=== PATIENT | male | born 1990 | race Caucasian/White ===

== ENCOUNTER → 2017-12-14 13:25 | Outpatient (CLI) | payer OTHER, MEDICAID, SELFPAY ==
--- NOTE | 2017-12-14 13:32 | DI.RAD.S_ITS ---
PROCEDURE: XR HAND RT MIN 3V INDICATIONS: hand pain TECHNIQUE: 3 views of the hand(s) acquired. COMPARISON: None. FINDINGS: Bones: There is a fracture involving the fifth metacarpal neck with mild volar angulation. Carpal bones are normally aligned. No suspicious bony lesions. There is a small osseous density at the ulnar aspect of the third distal interphalangeal joint. Soft tissues: No suspicious soft tissue calcifications. IMPRESSION: 1. Fracture of the fifth metacarpal neck with mild volar angulation. 2. Small ossicle at the ulnar aspect of the third distal interphalangeal joint may be a small avulsion fracture of uncertain chronicity. Dictated by: Blayne Copeland M.D. on 12/14/2017 at 22:11 Transcribed by: MAIKEL on 12/14/2017 at 22:14 Approved by: Blayne Copeland M.D. on 12/15/2017 at 7:39
== END ==
PROVIDERS: Visit Provider Physician Assistant
DX: S62.336A Displaced fracture of neck of fifth metacarpal bone, right hand, initial encounter for closed fracture (principal); M79.641 Pain in right hand
CPT/HCPCS: 73130

== ENCOUNTER 2018-03-04 08:47 | Emergency (ER) | payer SELFPAY ==
[2018-03-04 09:03] VITALS: BP 149/68; PULSE 78; RESP 20; TEMP 36.9; O2SAT 98; BMI 45.6
--- NOTE | 2018-03-04 09:07 | ED.MALEGU ---
HPI - Male Genitourinary General Chief complaint: Urogenital-Male Stated complaint: LOWER BACK PAIN ON RT SIDE Time Seen by Provider: 03/04/18 09:06 Source: patient Mode of arrival: ambulatory Limitations: no limitations History of Present Illness HPI Narrative: Patient is a 27-year-old male who presents with right-sided flank pain. It started about 5:00 a.m. morning as seems to be pretty constant goes around to his abdomen not down to his groin. He has not noted any blood in his urine as feel some what nauseated he took 1200 ibuprofen this morning all at without any all Related Data Previous Rx's Medication Instructions Recorded hydrocodone-acetaminophen 1 tab PO Q6H PRN #10 tab 03/04/18 ondansetron 4 mg PO Q6H #10 tab 03/04/18 ondansetron [Zofran ODT] 4 mg PO Q6-8H PRN #10 tab 03/04/18 Allergies Allergy/AdvReac Type Severity Reaction Status Date / Time No Known Drug Allergies Allergy Verified 12/14/17 12:34 Review of Systems Review of Systems GENERAL: Denies chills, fatigue, malaise, fever, sweats, travel HEENT: Denies sinus pain, ear pain, sore throat, difficulty swallowing, neck pain RESPIRATORY: Denies dyspnea, cough, wheezing, hemoptysis, sputum. CARDIOVASCULAR: Denies chest pain, palpitations, orthopnea, edema GASTROINTESTINAL: Denies nausea, vomiting, abdominal pain, diarrhea, constipation, melena. : See HPI MUSCULOSKELETAL: Denies weakness, joint pain, or bony pain SKIN: No rash, no erythema, no pruritus NEUROLOGIC: Denies weakness, dizziness, headache, numbness, change in speech, confusion PSYCHIATRIC: No concerning psychosocial issues. 12 point review of systems is negative except for those stated above and HPI PFSH Medical History Healthy male adult (Acute) Social History Smoking Status: Never smoker Exam Initial Vital Signs Initial Vital Signs: Vital Signs Temperature 98.5 F 03/04/18 09:03 Pulse Rate 78 03/04/18 09:03 Respiratory Rate 20 03/04/18 09:03 Blood Pressure 149/68 H 03/04/18 09:03 Pulse Oximetry 98 03/04/18 09:03 GENERAL: Well-appearing, well-nourished and in no acute distress. HEENT: Head atraumatic,EOMI, pupils reactive, face symmetric CARDIOVASCULAR: Regular rate and rhythm without murmurs, rubs or gallops. RESPIRATORY: Breath sounds equal bilaterally, no wheezes rales or rhonchi. ABDOMEN: Soft, minimal tenderness no lower abdominal tenderness no guarding or rebound : Mild right CVA tenderness EXTREMITIES: Normal range of motion, no clubbing or edema. Neurovascularly intact NEUROLOGICAL: Alert and oriented x4.Normal gait and speech. Cranial nerves II through XII grossly intact. SKIN: Warm, dry, no laceration, no petechiae, no rashes or lesions. Course Orders Ordered: ED Orders 03/04/18 09:37 CT kidney ureter bladder (KUB) Stat 03/04/18 09:55 Urinalysis and Microscopic Stat 03/04/18 10:00 Basic Metabolic Panel Stat Complete Blood Count AUTO DIFF Stat Vital Signs - 8 hr 03/04/18 09:03 03/04/18 09:30 03/04/18 10:00 Temperature 98.5 F Pulse Rate 78 81 83 Respiratory Rate 20 30 H 30 H Blood Pressure 149/68 H Blood Pressure [Left Arm] 94/43 L 100/46 L Pulse Oximetry 98 93 94 03/04/18 10:35 03/04/18 11:06 Temperature Pulse Rate 80 72 Respiratory Rate 31 H 20 Blood Pressure 138/76 Blood Pressure [Left Arm] 93/45 L Pulse Oximetry 100 MDM - Male Genitourinary Lab Data Attestation: I reviewed the patient's lab results. Result diagrams: 03/04/18 10:00 03/04/18 10:00 Lab Results 03/04/18 03/04/18 03/04/18 Range/Units 09:55 10:00 10:00 WBC 15.0 H (4.5-11.0) X10^3/uL RBC 5.66 (4.5-5.9) X10^6/uL Hgb 16.7 (13.5-17.5) g/dL Hct 49.2 (41-53) % MCV 86.9 (80-100) fL MCH 29.5 (26-34) PG MCHC 34.0 (30-36) % RDW 13.8 (11.6-14.8) % Plt Count 333 (150-400) X10^3/uL Neut % (Auto) 82.9 H (50-75) % Lymph % (Auto) 10.7 L (25-40) % [place] % (Auto) 5.8 (3-14) % Eos % (Auto) 0.2 L (2-4) % Baso % (Auto) 0.4 (0-2) % Neut # (Auto) 93675 H (2278-5731) /uL Sodium 146 H (137-145) mmol/L Potassium 4.8 (3.4-5.1) mmol/L Chloride 104 (98-107) mmol/L Carbon Dioxide 30 (22-32) mmol/L BUN 12 (9-20) mg/dL Creatinine 1.20 (0.66-1.25) mg/dL Estimated GFR > 60.0 (>60) mL/min BUN/Creatinine Ratio 10.0 (6-22) Glucose 104 H (70-100) mg/dL Calcium 9.6 (8.4-10.2) mg/dL Urine Color Yellow Urine Appearance Clear Urine pH 6.5 (4.5-8.0) Ur Specific [place] 1.025 (1.000-1.035) Urine Protein 2+ H (Negative) Urine Glucose (UA) Negative (Normal) g/dL Urine Ketones Negative (NEGATIVE) Urine Occult Blood 3+ H (Negative) Urine Nitrate Negative (Negative) Urine Bilirubin Negative (NEGATIVE) Urine Urobilinogen 1.0 (0.2) E.U./dL Ur Leukocyte Esterase Trace H (NEGATIVE) Urine RBC 5-10/hpf H (0-5/HPF) Urine WBC 0-1/hpf (0-5/HPF) Urine Bacteria None seen (None) Ur Culture Indicated? Cult not indicated Imaging Data CT scan - abdomen: Radiologist's impression: PROCEDURE: CT KIDNEY URETER BLADDER (KUB) INDICATIONS: right flank pain TECHNIQUE: Noncontrast 5 mm thick sections acquired from the diaphragms to the symphysis. 5 mm thick coronal and sagittal reformats were then performed. For radiation dose reduction, the following was used: automated exposure control, adjustment of mA and/or kV according to patient size. COMPARISON: None. FINDINGS: Image quality: Excellent. Lung bases: Lung bases are clear. Heart size is normal. Urinary system: Left kidney and ureter are unremarkable. There is a punctate calcification at the right ureterovesicular junction with mild to moderate right hydronephrosis and hydroureter. Bladder is collapsed limiting evaluation; no calcified bladder stones. Other solid organs: Liver is normal in size. Gallbladder is unremarkable. Pancreas is normal in contours. Spleen is normal in size. No adrenal nodules. Peritoneum and bowel: Unenhanced bowel loops demonstrate normal wall thickness and caliber. No free fluid or air. Nodes and vessels: No retroperitoneal or mesenteric adenopathy by size criteria. Aorta and inferior vena cava are normal in caliber. Abdominal wall: No ventral hernias. Pelvis: No free pelvic fluid. No inguinal hernias or adenopathy. Bones: No suspicious bony lesions. No vertebral body compression fractures. IMPRESSION: 1. Mild/moderate right hydronephrosis and hydroureter secondary to punctate calcification at the right ureterovesicular junction. Dictated by: Malinda Arambula M.D. on 03/04/2018 at 9:53 Discharge Plan Departure Patient Disposition: Home Clinical Impression: Kidney stone on right side Discharge Date/Time: 03/04/18 11:07 Interventions: ED Discharge Assessment Last Done: 03/04/18 11:06 Instructions: DI for Kidney Stones Activity Restrictions/Additional Instructions: *Increase fluid intake Strain urine, try to catch stone -If you should have fever, or pain is uncontrolled with medication at home or any other concerning symptoms return to ER for further evaluation MEDICATIONS Take Motrin 800 mg every 8 hours as needed for pain (naproxen 500 mg every 12 hr) Take [place] every 6 hours if needed for severe pain Take Zofran every 4-6 hours if needed for nausea CONTROLLED SUBSTANCE DISCHARGE (Narcotoic/benzodiazepine) 1. You have been prescribed narcotic medications, it does have acetaminophen/Tylenol/paracetamol in it so do not take extra Tylenol or Tylenol containing products 2. Please understand that we cannot provide further refills of narcotics, benzodiazepines or controlled substances through the ED and her pain management will need to be through your provider. 3. While on these medications you cannot drive or operate heavy machinery. 4. You cannot sign legal documents or perform any duties such as this. 5. As long as you're taking opiate pain medications he should also be taking a stool softener such as Colace, Dulcolax, MiraLAX or prune juice, to help avoid constipation. Prescriptions: New hydrocodone-acetaminophen 5-325 mg tablet 1 tab PO Q6H PRN (Reason: pain) Qty: 10 RF: 0 ondansetron 4 mg tablet,disintegrating 4 mg PO Q6H Qty: 10 RF: 0 ondansetron [Zofran ODT] 4 mg tablet,disintegrating 4 mg PO Q6-8H PRN (Reason: nausea and vomiting) Qty: 10 RF: 0
[2018-03-04 09:30] VITALS: BP 94/43; PULSE 81; RESP 30; O2SAT 93
--- NOTE | 2018-03-04 09:37 | DI.CT.S_ITS ---
PROCEDURE: CT KIDNEY URETER BLADDER (KUB) INDICATIONS: right flank pain TECHNIQUE: Noncontrast 5 mm thick sections acquired from the diaphragms to the symphysis. 5 mm thick coronal and sagittal reformats were then performed. For radiation dose reduction, the following was used: automated exposure control, adjustment of mA and/or kV according to patient size. COMPARISON: None. FINDINGS: Image quality: Excellent. Lung bases: Lung bases are clear. Heart size is normal. Urinary system: Left kidney and ureter are unremarkable. There is a punctate calcification at the right ureterovesicular junction with mild to moderate right hydronephrosis and hydroureter. Bladder is collapsed limiting evaluation; no calcified bladder stones. Other solid organs: Liver is normal in size. Gallbladder is unremarkable. Pancreas is normal in contours. Spleen is normal in size. No adrenal nodules. Peritoneum and bowel: Unenhanced bowel loops demonstrate normal wall thickness and caliber. No free fluid or air. Nodes and vessels: No retroperitoneal or mesenteric adenopathy by size criteria. Aorta and inferior vena cava are normal in caliber. Abdominal wall: No ventral hernias. Pelvis: No free pelvic fluid. No inguinal hernias or adenopathy. Bones: No suspicious bony lesions. No vertebral body compression fractures. IMPRESSION: 1. Mild/moderate right hydronephrosis and hydroureter secondary to punctate calcification at the right ureterovesicular junction. Dictated by: Malinda Arambula M.D. on 03/04/2018 at 9:53 Approved by: Malinda Arambula M.D. on 03/04/2018 at 9:55
[2018-03-04 10:00] VITALS: BP 100/46; PULSE 83; RESP 30; O2SAT 94
[2018-03-04 10:00] LABS: Appearance Urine UA CLEAR; Bacteria Urine None Seen; Bilirubin Urine UA NEGATIVE (NEGATIVE); Color Urine UA YELLOW; Glucose Urine UA NEGATIVE (Normal); Ketones Urine UA NEGATIVE (NEGATIVE); Leukocyte Esterase Urine UA TRACE (NEGATIVE); Nitrite Urine UA Negative (Negative); Occult Blood Urine UA 3+ (Negative); Protein Urine UA 2+ (Negative); Specific Gravity Urine UA 1.025 (1.000-1.035); pH Urine UA 6.5 (4.5-8.0)
[2018-03-04 10:06] LABS: Culture Indicated Urine Cult Not Indicated; RBC Urine 5-10/HPF (0-5/HPF); WBC Urine 0-1/HPF (0-5/HPF)
[2018-03-04 10:06] LABS: Add Manual Diff / Slide Review NO; Basophils Percent Auto 0.4 % (0-2); Eosinophils Percent Auto 0.2 % (2-4); Hematocrit 49.2 % (41-53); Hemoglobin 16.7 g/dL (13.5-17.5); Lymphocytes Percent Auto 10.7 % (25-40); Mean Corpuscular Hemoglobin 29.5 PG (26-34); Mean Corpuscular Volume 86.9 fL (80-100); Monocytes Percent Auto 5.8 % (3-14); Neutrophils Absolute Auto 12400 /uL (3000-5900); Neutrophils Percent Auto 82.9 % (50-75); Platelet Count 333 X10^3/uL (150-400); Red Blood Cell Count 5.66 X10^6/uL (4.5-5.9); Red Cell Distribution Width 13.8 % (11.6-14.8)
[2018-03-04 10:16] LABS: Blood Urea Nitrogen 12 mg/dL (9-20); Calcium 9.6 mg/dL (8.4-10.2); Carbon Dioxide 30 mmol/L (22-32); Chloride 104 mmol/L (98-107); Estimated Glomerular Filt Rate > 60.0 mL/min (>60); Glucose 104 mg/dL (70-100); HEMOLYSIS < 15 (0-50); Potassium 4.8 mmol/L (3.4-5.1); Sodium 146 mmol/L (137-145)
--- NOTE | 2018-03-04 10:32 | PC.NURSE ---
pt remain alert, increased in abdominal distentions, with lower back pain, reposition for comfort. bp [address] dr waddell made aware, family at bs.
[2018-03-04 10:35] VITALS: BP 93/45; PULSE 80; RESP 31
[2018-03-04 11:06] VITALS: BP 138/76; PULSE 72; RESP 20; O2SAT 100
== END 2018-03-04 11:07 | disposition home or self-care (01) ==
PROVIDERS: Emergency Provider Emergency Medicine
DX: N20.0 Calculus of kidney (principal)
CPT/HCPCS: 36415; 74176; 80048; 81001; 85025; 99283; 99284

== ENCOUNTER → 2018-03-09 14:00 | Outpatient (CLI) | payer SELFPAY | DX: Z23 Encounter for immunization (principal) | CPT/HCPCS: 90471; 90686 ==

== ENCOUNTER → 2019-12-05 14:10 | Outpatient (CLI) | payer OTHER, SELFPAY ==
[2019-12-09 00:15] LABS: COVID19 Sendout Not Detected (Not Detected)
== END ==
PROVIDERS: Visit Provider Physician Assistant
DX: R50.9 Fever, unspecified (principal)
CPT/HCPCS: 87635

== ENCOUNTER 2020-01-11 04:20 | Emergency (ER) | payer OTHER, SELFPAY ==
--- NOTE | 2020-01-11 04:21 | ED_ITS ---
HPI - URI/Sore Throat General Chief Complaint: Upper Respiratory Symptoms Stated Complaint: cough, sore throat x3days Time Seen by Provider: 01/11/20 04:20 Source: patient Mode of arrival: Ambulatory Limitations: no limitations History of Present Illness HPI Narrative: [age] old male nonsmoker with non contributory medical history presents with a chief complaint of 3 days of sore throat, difficulty swallowing and occasional dry hacking cough. He denies any fever or chills. He denies any body aches. He denies nausea, vomiting or diarrhea. He denies exposure to persons known to be ill with coronavirus. MD Complaint: cough and sore throat Onset (ago): day(s) Duration: constant Severity: moderate Relieving factors: nothing Exacerbating factors: swallowing Description of mucous: clear Able to tolerate fluids by mouth: Yes Treatments prior to arrival: none Related Data Previous Rx's Medication Instructions Recorded hydrocodone-acetaminophen 1 tab PO Q6H PRN #10 tab 03/04/18 ondansetron 4 mg PO Q6H #10 tab 03/04/18 ondansetron [Zofran ODT] 4 mg PO Q6-8H PRN #10 tab 03/04/18 Allergies Allergy/AdvReac Type Severity Reaction Status Date / Time No Known Drug Allergies Allergy Verified 12/05/19 16:27 Review of Systems Constitutional Constitutional: Denies chills, Denies fatigue, Denies fever(s), Denies frequent falls, Denies lethargy and Denies weakness Eyes Eyes: Denies change in vision, Denies eye discharge, Denies irritation and Denies loss of vision ENT Ears, Nose, Mouth, and Throat: Denies change in voice, Denies dizziness, Denies neck pain, Reports sore throat and Denies throat swelling Cardiovascular Cardiovascular: Denies chest pain, Denies irregular heart rhythm, Denies lightheadedness, Denies palpitations, Reports dyspnea, Denies dyspnea on exertion and Denies orthopnea Respiratory Respiratory: Reports cough, Reports dyspnea, Denies dyspnea on exertion and Denies wheezing Gastrointestinal Gastrointestinal: Denies abdominal pain, Denies change in bowel habits, Denies diarrhea, Denies nausea and Denies vomiting Musculoskeletal Musculoskeletal: Denies neck pain and Denies numbness Integumentary/Breasts Skin/Breast: Denies pruritus, Denies erythema, Denies rash and Denies wounds Neurologic Neurologic: Denies behavioral changes, Denies confusion, Denies dizziness, Denies frequent falls, Denies loss of vision, Denies numbness and Denies weakness Psychiatric Psychiatric: Denies anxiety, Denies behavioral changes, Denies confusion, Denies depression, Denies homicidal ideation and Denies suicidal ideation Endocrine Endocrine: Denies fatigue, Denies flushing and Denies palpitations Hematologic/Lymphatic Hematologic/Lymphatic: Denies easy bruising Allergic/Immunologic Allergic/Immunologic: Denies urticaria, Denies throat swelling and Denies wheezing Patient History Medical History Healthy male adult (Acute) Social History Smoking Status: Never smoker Smoking Status: Never smoker alcohol intake frequency: 0-2 drinks per day Substance Use Type: does not use Exam Narrative Exam Narrative: GENERAL: [29] year old patient appears stated age. Well- nourished, well-developed patient, in mild distress. HEAD: Atraumatic. Normocephalic. EYES: Pupils equal round and reactive. Extraocular motions intact. No scleral icterus. No injection or drainage. ENT: Nose without bleeding, purulent drainage. Throat without erythema, tonsillar hypertrophy or exudate, though there is clear postnasal drip noted Airway patent. NECK: Trachea midline. Non tender CARDIOVASCULAR: Regular rate and rhythm without murmurs, gallops, or rubs. RESPIRATORY: Clear to auscultation. Breath sounds equal bilaterally. No wheezes, rales, or rhonchi. GASTROINTESTINAL: Abdomen soft, non-tender, nondistended. EXTREMITIES: No edema or joint tenderness. BACK: Nontender without deformity or crepitance. No flank tenderness. NEURO: AOx3. SKIN: No rash or erythema of visible areas Initial Vital Signs Initial Vital Signs: Vital Signs Temperature 98.5 F 01/11/20 04:26 Pulse Rate 97 H 01/11/20 04:26 Respiratory Rate 20 01/11/20 04:26 Blood Pressure 166/93 H 01/11/20 04:26 Pulse Oximetry 98 01/11/20 04:26 Course Orders Ordered: ED Orders 01/11/20 04:26 XR chest 1V Stat Vital Signs Vital signs: Vital Signs - 8 hr 01/11/20 04:26 Temperature 98.5 F Pulse Rate 97 H Respiratory Rate 20 Blood Pressure 166/93 H Pulse Oximetry 98 MDM - URI/Sore Throat Lab Data Labs: Lab Results 01/11/20 Range/Units 04:30 COVID-19 PCR Negative (Negative) Point of Care Testing Rapid Strep A Negative Discharge Plan Departure Patient Disposition: Home Clinical Impression: Upper respiratory infection Qualifiers: URI type: unspecified viral URI Qualified Code(s): J06.9 - Acute upper respiratory infection, unspecified Instructions: DI for Viral Upper Respiratory Infection -- Adult Activity Restrictions/Additional Instructions: *You have been diagnosed with [acute viral upper respiratory infection. Your COVID-19 test was negative] *What to do: *Take medications as directed *Follow up with your primary care provider in 2-3 days, call for an appointment. Let them know you were seen in the Emergency Department and that we ask that you be seen in follow up *Return to ER if you should have any new, worsening or concerning symptoms Radiographic study has been interpreted by an emergency physician. The official diagnosis by radiology will be performed within the next 24 hours and should there be any change in outcome we will notify you of how to proceed. Prescriptions: No Action hydrocodone-acetaminophen 5-325 mg tablet 1 tab PO Q6H PRN (Reason: pain) Qty: 10 RF: 0 ondansetron 4 mg tablet,disintegrating 4 mg PO Q6H Qty: 10 RF: 0 ondansetron [Zofran ODT] 4 mg tablet,disintegrating 4 mg PO Q6-8H PRN (Reason: nausea and vomiting) Qty: 10 RF: 0 Stand Alone Forms: Work Release Note
[2020-01-11 04:26] VITALS: BP 166/93; PULSE 97; RESP 20; TEMP 36.9; O2SAT 98; BMI 46.6
--- NOTE | 2020-01-11 04:26 | DI.RAD.S_ITS ---
PROCEDURE: XR CHEST 1V INDICATIONS: cough, shortness of breath TECHNIQUE: One view of the chest was acquired. COMPARISON: None. FINDINGS: Surgical changes and devices: None. Lungs and pleura: Lungs are clear. No pleural effusions or pneumothorax. Mediastinum: Mediastinal contours appear normal. Heart size is normal. Bones and chest wall: Mild levoconvex scoliotic curvature is noted. No suspicious bony lesions. Overlying soft tissues appear unremarkable. IMPRESSION: No significant plain film abnormality is seen. Note: No significant discrepancy from the preliminary report. Dictated by: Musa Singer M.D. on 01/11/2020 at 7:28 Approved by: Musa Singer M.D. on 01/11/2020 at 7:28
[2020-01-11 05:42] LABS: COVID19 -Nasal RAPID Negative (Negative)
[2020-01-11 06:10] VITALS: BP 163/93; PULSE 91; RESP 20; O2SAT 98
== END 2020-01-11 06:10 | disposition home or self-care (01) ==
PROVIDERS: Emergency Provider Emergency Medicine
DX: J02.9 Acute pharyngitis, unspecified (principal); R05 Cough; R06.00 Dyspnea, unspecified
CPT/HCPCS: 71045; 87635; 87880; 99283

== ENCOUNTER → 2020-03-30 | Outpatient (CLI) | payer OTHER, SELFPAY | PROVIDERS: Referring Provider Internal Medicine; Visit Provider Internal Medicine | DX: Z23 Encounter for immunization (principal) | CPT/HCPCS: 90471; 90686 ==

== ENCOUNTER → 2020-04-17 08:27 | Outpatient (CLI) | payer OTHER, SELFPAY ==
[2020-04-17 08:48] LABS: COVID19 -Nasal RAPID Negative (Negative)
== END ==
PROVIDERS: Visit Provider Physician Assistant
DX: Z11.59 Encounter for screening for other viral diseases (principal)
CPT/HCPCS: 87635

== ENCOUNTER → 2020-11-06 14:26 | Outpatient (CLI) | payer OTHER, SELFPAY ==
[2020-11-06] MEDS: COVID-19 VACC, Ad26(JANSSEN)/PF 0.5 ML IM (14:27)
== END ==
PROVIDERS: Visit Provider Internal Medicine
DX: Z23 Encounter for immunization (principal)
CPT/HCPCS: 0031A; 91303

== ENCOUNTER 2020-11-17 08:41 | Emergency (ER) | payer OTHER, SELFPAY ==
[2020-11-17 09:13] VITALS: BP 139/85; PULSE 69; RESP 20; TEMP 36.6; O2SAT 96
--- NOTE | 2020-11-17 09:16 | DI.RAD.S_ITS ---
PROCEDURE: XR FOOT RT MIN 3V INDICATIONS: atraumatic pain on top of foot. worse w/ weight bearing TECHNIQUE: 3 views of the foot were acquired. COMPARISON: None. FINDINGS: Bones: No acute fractures or dislocations. No asymmetric periosteal reaction or cortical thickening. No suspicious bony lesions. Soft tissues: Mild forefoot soft tissue swelling. No tibiotalar joint effusion. Achilles tendon appears normal. IMPRESSION: Soft tissue swelling of the right forefoot without underlying fracture or dislocation. If there is persistent clinical concern for occult fracture or possible stress injury, consider further evaluation with nonemergent/outpatient MRI. Dictated by: Atilio Moran M.D. on 11/17/2020 at 9:28 Approved by: Atilio Moran M.D. on 11/17/2020 at 9:29
--- NOTE | 2020-11-17 09:44 | ED.LOWEXIN ---
HPI - Extremity Injury (Lower) General Chief Complaint: Extremity Injury, Lower Stated Complaint: right foot pain since Monday morning Time Seen by Provider: 11/17/20 09:43 Source: patient Mode of arrival: Ambulatory Limitations: no limitations History of Present Illness HPI Narrative: Patient awoke 2 days ago, Monday morning with right dorsal foot pain and swelling and redness. No known injury. He did get new shoes 1 month ago and started feeling discomfort. However no known injuries. No skin injury. No history of kidney disease no history of diabetes. No history of gout in the past. However he did have similar episode about 10 years ago in the left foot. X-rays negative for fracture here. Does show soft tissue swelling. Patient has brief relief with ibuprofen. Patient has been working in the last 2 days on his feet. 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 Related Data Previous Rx's Medication Instructions Recorded hydrocodone-acetaminophen 1 tab PO Q6H PRN #10 tab 03/04/18 ondansetron 4 mg PO Q6H #10 tab 03/04/18 ondansetron [Zofran ODT] 4 mg PO Q6-8H PRN #10 tab 03/04/18 indomethacin 50 mg PO TID #10 cap 11/17/20 Allergies Allergy/AdvReac Type Severity Reaction Status Date / Time No Known Drug Allergies Allergy Verified 12/05/19 16:27 Review of Systems Review of Systems Narrative: GENERAL: Denies chills, fatigue, malaise, fever, sweats. HEENT: Denies sinus pain, ear pain, sore throat RESPIRATORY: Denies dyspnea, cough CARDIOVASCULAR: Denies chest pain, palpitations GASTROINTESTINAL: Denies nausea, vomiting, abdominal pain : Denies dysuria, frequency, hematuria MUSCULOSKELETAL: Complaining muscle or bony pain SKIN: Denies rash, skin lesions NEUROLOGIC: Denies weakness, numbness ROS Unobtainable: All systems reviewed & are unremarkable except as noted in HPI and below Patient History Medical History Healthy male adult Social History Smoking Status: Never smoker Smoking Status: Never smoker alcohol intake frequency: 0-2 drinks per day Substance Use Type: does not use Exam Narrative Exam Narrative: GENERAL: in no distress, not toxic not dyspneic HEAD: Normocephalic. EXTREMITIES: No gross deformities. Examination right foot. Ankle nontender. Toes nontender. There is mid dorsal surface erythema edema. No induration. No signs of infection. Skin is intact. No fluctuance. Increased pain with plantar flexion of the foot. Patient is ambulatory in the hallway no footdrop. Slight antalgic gait. Light touch intact to foot and toes. Strong pedal pulse. NEURO: AOx4. SKIN: Warm and dry PSYCH: Not anxious, is cooperative Initial Vital Signs Initial Vital Signs: Vital Signs Temperature 97.8 F 11/17/20 09:13 Pulse Rate 69 11/17/20 09:13 Respiratory Rate 20 11/17/20 09:13 Blood Pressure 139/85 11/17/20 09:13 Pulse Oximetry 96 11/17/20 09:13 Course Course Course Narrative: No new issues during course of stay. Orders Ordered: ED Orders 11/17/20 09:16 XR foot RT min 3V Stat Vital Signs Vital signs: Vital Signs - 8 hr 11/17/20 09:13 Temperature 97.8 F Pulse Rate 69 Respiratory Rate 20 Blood Pressure 139/85 Pulse Oximetry 96 MDM - Extremity Injury (Lower) Differential Diagnosis Differential diagnosis: Likely other (Gout/arthritis/foot strain/foot sprain/fracture) Imaging Data Extremity x-ray #1: Radiologist's Impression: [address] [id number] ReportSigned Patient: Kameron Chan TMR#: [id number]: [id number]:[id number]/Sex: 30 / MDate of Service: 11/17/20Loc: EDAccession Number: [id number] Procedure: XR foot RT min 3V Ordering Provider: Mckinley Swift MD PROCEDURE: XR FOOT RT MIN 3V INDICATIONS: atraumatic pain on top of foot. worse w/ weight bearing TECHNIQUE: 3 views of the foot were acquired. COMPARISON: None. FINDINGS: Bones: No acute fractures or dislocations. No asymmetric periosteal reaction or cortical thickening. No suspicious bony lesions. Soft tissues: Mild forefoot soft tissue swelling. No tibiotalar joint effusion. Achilles tendon appears normal. IMPRESSION: Soft tissue swelling of the right forefoot without underlying fracture or dislocation. If there is persistent clinical concern for occult fracture or possible stress injury, consider further evaluation with nonemergent/outpatient MRI. Dictated by: Atilio Moran M.D. on 11/17/2020 at 9:28 Approved by: Atilio Moran M.D. on 11/17/2020 at 9:29 [facility] Narrative Medical decision making narrative: Patient agrees no blood work at this time. No diabetes no fever. Low suspicion for cellulitis. No risk factors for cellulitis. Possibly gout however laboratory studies would not change treatment plan. No renal issues. No diabetes. He does desire trying indomethacin. Podiatry referral given. Discharge Plan Departure Patient Disposition: Home Clinical Impression: Acute pain of right foot Instructions: DI for Foot Pain Activity Restrictions/Additional Instructions: Call provided podiatry office today for office recheck this week. Do not continue using new shoes. Resume old shoe wear and be sure to have good arch support. Return if worse or any questions or concerns. Prescriptions have been sent to your [facility]'s pharmacy here in [facility]. Prescriptions: New indomethacin 50 mg capsule 50 mg PO TID Qty: 10 RF: 0 No Action hydrocodone-acetaminophen 5-325 mg tablet 1 tab PO Q6H PRN (Reason: pain) Qty: 10 RF: 0 ondansetron 4 mg tablet,disintegrating 4 mg PO Q6H Qty: 10 RF: 0 ondansetron [Zofran ODT] 4 mg tablet,disintegrating 4 mg PO Q6-8H PRN (Reason: nausea and vomiting) Qty: 10 RF: 0 Referrals: Parul Hidalgo DPM [Physician] - Ruy Hernandez DPM [Physician] - Stand Alone Forms: Work Release Note
== END 2020-11-17 09:56 | disposition home or self-care (01) ==
PROVIDERS: Emergency Provider Emergency Medicine
DX: M79.671 Pain in right foot (principal)
CPT/HCPCS: 73630; 99283

== ENCOUNTER 2021-09-29 23:04 | Emergency (ER) | payer OTHER, SELFPAY ==
[2021-09-29 23:15] VITALS: BP 135/75; PULSE 93; RESP 18; TEMP 36.7; O2SAT 98; BMI 43.9
--- NOTE | 2021-09-30 01:05 | ED.DENTAL ---
HPI - Dental/Oral General Chief complaint: Dental/Oral Stated complaint: left side toothache Time Seen by Provider: 09/30/21 01:04 Source: patient Mode of arrival: Ambulatory Limitations: no limitations History of Present Illness HPI Narrative: This is a 31-year-old male with cracked #20 tooth. Patient states he saw the dentist was started on an oral antibiotic and a prescription toothpaste for sensitive gums with plan to follow-up in several weeks for extraction. Patient extraction was pushed further back due to scheduling issues and he has completed the antibiotics 2 weeks ago and started developing increasing pain, redness and swelling at the site of the tooth and outer skin. No fevers or chills. No swelling of the airway, swelling tongue, no difficulty with swallowing. No fevers or chills. Patient has been taking ibuprofen up to 800 mg 1-2 times daily and Tylenol up to a 1000 mg 1-2 times daily. It is typically helpful but not always completely. Patient is unsure the name of the antibiotic but states it was twice daily. They deny any other major medical issues. No major surgeries. No known drug allergies. No tobacco, occasional alcohol, no illicit. Related Data Previous Rx's Medication Instructions Recorded hydrocodone 5 mg-acetaminophen 325 1 tab PO Q6H PRN #10 tab 03/04/18 mg tablet ondansetron 4 mg disintegrating 4 mg PO Q6H #10 tab 03/04/18 tablet ondansetron 4 mg disintegrating 4 mg PO Q6-8H PRN #10 tab 03/04/18 tablet (Zofran ODT) indomethacin 50 mg capsule 50 mg PO TID #10 cap 11/17/20 amoxicillin 875 mg-potassium 1 tab PO Q12H #20 tab 09/30/21 clavulanate 125 mg tablet meloxicam 7.5 mg tablet 7.5 mg PO BID PRN #10 tab 09/30/21 Allergies Allergy/AdvReac Type Severity Reaction Status Date / Time No Known Drug Allergies Allergy Verified 12/05/19 16:27 Review of Systems Review of Systems ROS Unobtainable: All systems reviewed & are unremarkable except as noted in HPI and below Patient History Medical History (Updated 09/30/21 @ 01:36 by Destiny Live DO) Healthy male adult Social History Smoking Status: Never smoker Smoking Status: Never smoker alcohol intake frequency: 0-2 drinks per day Substance Use Type: does not use Exam Narrative Exam Narrative: GEN: well nourished, well appearing male, alert and oriented x 3, patient appears to be in mild distress. HEENT: Atraumatic, pupils are equal round reactive to light, extraocular movements are intact, nares are clear, TMs are clear with no fluid, there is no conjunctival pallor. Throat is clear without any exudates, erythema, tonsillar enlargement or uvular deviation, patient has chronic tooth is partially missing at the 20. Position. There is some mild swelling of the in her paternal cheek adjacent, no fluctuance or significant swelling at the site itself, patient has some mild erythema swelling and induration of the left cheek along the mandible. No fluctuance or fluid collection appreciated. HEART: Regular rate and rhythm without murmur, clicks, rubs. No carotid bruits, pulses are equal in upper and lower extremities LUNGS:Lungs clear to auscultation, no wheezes, rales, crackles, chest moves symmetrically ABD:bowel sounds normal, soft, non-tender, no guarding, rebound, rigidity, no masses noted, no hepatosplenomegaly MSCL:full range of motion, normal gait NEURO:CN 2-12 intact, sensation normal SKIN: See above Initial Vital Signs Initial Vital Signs: Vital Signs Temperature 98.0 F 09/29/21 23:15 Pulse Rate 93 H 09/29/21 23:15 Respiratory Rate 18 09/29/21 23:15 Blood Pressure 135/75 09/29/21 23:15 Pulse Oximetry 98 09/29/21 23:15 Course Orders Ordered: Discontinued Medications Amoxicillin/Clavulanate Potassium (Amoxicillin/Clav 875/125 Mg) 1 tab PO NOW ONE Stop: 09/30/21 01:31 Last Admin: 09/30/21 01:34 Dose: 1 tab Documented by: ANDREEA Vital Signs Vital signs: Vital Signs - 8 hr 09/29/21 23:15 09/30/21 01:46 Temperature 98.0 F Pulse Rate 93 H 90 Respiratory Rate 18 18 Blood Pressure 135/75 132/82 Pulse Oximetry 98 99 MDM - Dental/Oral MDM Narrative Medical decision making narrative: This is a 31-year-old male with cracked tooth with have planned follow-up for extraction and treatment. Patient was on antibiotics that were started prophylactically by the dentist. Completed those 2 weeks ago and has since started developing increasing pain redness and swelling at this site. Patient started on oral antibiotic given a short course of stronger and said as ibuprofen has been inadequate at times and can continue Tylenol as needed. Return precautions discussed. Discharge Plan Departure Patient Disposition: Home Clinical Impression: Dental infection, Fracture of tooth Instructions: DI for Dental Pain Activity Restrictions/Additional Instructions: Follow-up with your dentist for treatment of your cracked tooth. You can apply ice and/or warm compress to the affected area as needed. Take antibiotics until completely gone. You may take pain medication 1 tablet every 12 hours as needed. You can take up to a 1000 mg of Tylenol every 6 hours in addition to this. Prescription sent to [facility] in [place]. Please return for fevers, rapidly worsening pain, increasing redness, swelling, purulent drainage, swelling of the lip, airway or tongue or other new or concerning symptoms. Prescriptions: New meloxicam 7.5 mg tablet 7.5 mg PO BID PRN (Reason: pain) Qty: 10 0RF amoxicillin-pot clavulanate 875-125 mg tablet 1 tab PO Q12H Qty: 20 0RF No Action hydrocodone-acetaminophen 5-325 mg tablet 1 tab PO Q6H PRN (Reason: pain) Qty: 10 0RF ondansetron 4 mg tablet,disintegrating 4 mg PO Q6H Qty: 10 0RF ondansetron [Zofran ODT] 4 mg tablet,disintegrating 4 mg PO Q6-8H PRN (Reason: nausea and vomiting) Qty: 10 0RF indomethacin 50 mg capsule 50 mg PO TID Qty: 10 0RF Rx Instructions: administer with food or milk Stand Alone Forms: Work Release Note
[2021-09-30] MEDS: AMOXICILLIN/CLAV 875/125 MG 1 TAB PO (01:34)
[2021-09-30 01:46] VITALS: BP 132/82; PULSE 90; RESP 18; O2SAT 99
== END 2021-09-30 01:47 | disposition home or self-care (01) ==
PROVIDERS: Emergency Provider Emergency Medicine
DX: K03.81 Cracked tooth (principal); K04.7 Periapical abscess without sinus
CPT/HCPCS: 99283

== ENCOUNTER → 2022-03-01 14:11 | Outpatient (CLI) | payer OTHER, SELFPAY | PROVIDERS: Referring Provider Internal Medicine; Visit Provider Internal Medicine | DX: Z23 Encounter for immunization (principal) | CPT/HCPCS: 90471; 90686 ==

== ENCOUNTER 2023-01-28 20:20 | Emergency (ER) | payer OTHER, SELFPAY ==
[2023-01-28 20:24] VITALS: BP 157/81; PULSE 99; RESP 18; TEMP 36.9; O2SAT 96
[2023-01-28] MEDS: CARBAMIDE PEROXIDE OTIC 15 ML 4 DROPS EAR-RIGHT (22:35)
--- NOTE | 2023-01-28 22:47 | ED.EAR ---
HPI - Ear Problem General Chief complaint: Ear Stated complaint: Right ear issues Time Seen by Provider: 01/28/23 22:16 Source: patient Mode of arrival: Ambulatory Limitations: no limitations History of Present Illness HPI Narrative: 32-year-old male who has complaint of popping in his right ear that woke him up from sleep last night, patient states he is got fullness and decreased believe here from the right ear. No pain. 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 No fevers, no dizziness. Patient states he has not had similar symptoms in the past. Denies any other swelling redness or skin changes. Denies any other issues. No nausea or vomiting. Related Data Previous Rx's Medication Instructions Recorded hydrocodone 5 mg-acetaminophen 325 1 tab PO Q6H PRN pain #10 tabs 03/04/18 mg tablet ondansetron 4 mg disintegrating 4 mg PO Q6H #10 tabs 03/04/18 tablet ondansetron 4 mg disintegrating 4 mg PO Q6-8H PRN nausea and 03/04/18 tablet (Zofran ODT) vomiting #10 tabs indomethacin 50 mg capsule 50 mg PO TID #10 caps 11/17/20 amoxicillin 875 mg-potassium 1 tab PO Q12H #20 tabs 09/30/21 clavulanate 125 mg tablet meloxicam 7.5 mg tablet 7.5 mg PO BID PRN pain #10 tabs 09/30/21 Allergies Allergy/AdvReac Type Severity Reaction Status Date / Time No Known Drug Allergies Allergy Verified 01/28/23 20:24 Review of Systems Review of Systems ROS Unobtainable: All systems reviewed & are unremarkable except as noted in HPI and below Patient History Medical History (Updated 01/28/23 @ 22:51 by Destiny Live DO) Healthy male adult Social History Smoking Status: Never smoker Smoking Status: Never smoker alcohol intake frequency: 0-2 drinks per day Substance Use Type: does not use Exam Narrative Exam Narrative: GEN: well nourished, well appearing male, alert and oriented x 3, patient appears to be in mild distress. HEENT: Atraumatic, pupils are equal round reactive to light, extraocular movements are intact, nares are clear, left canal has moderate cerumen but able to visualize the TM, right TM unable to visualize patient has quite a bit of cerumen, no swelling, erythema or discomfort with palpation of the pinna or ear. There is no conjunctival pallor. Throat is clear without any exudates, erythema, tonsillar enlargement or uvular deviation HEART: Regular rate and rhythm without murmur, clicks, rubs. LUNGS:Lungs clear to auscultation, no wheezes, rales, crackles, chest moves symmetrically ABD:bowel sounds normal, soft, non-tender, no guarding, rebound, rigidity, no masses noted, no hepatosplenomegaly MSCL: Non-tender, no muscle atrophy, muscles strength 5/5 upper and lower extremities, full range of motion, normal gait NEURO:CN 2-12 intact, sensation normal SKIN: No rash, erythema or other skin changes Initial Vital Signs Initial Vital Signs: Vital Signs Temperature 98.5 F 01/28/23 20:24 Pulse Rate 99 H 01/28/23 20:24 Respiratory Rate 18 01/28/23 20:24 Blood Pressure 157/81 H 01/28/23 20:24 Pulse Oximetry 96 01/28/23 20:24 Oxygen Delivery Method Room Air 01/28/23 20:24 Course Orders Ordered: Discontinued Medications Carbamide Peroxide (Carbamide Peroxide Otic 15 Ml) 4 drops EAR-RIGHT BID ONE Stop: 01/28/23 22:33 Last Admin: 01/28/23 22:35 Dose: 4 drops Documented By: Vital Signs Vital signs: Vital Signs - 8 hr 01/29/23 00:03 Pulse Rate 80 Respiratory Rate 16 Blood Pressure 129/81 Pulse Oximetry 95 Oxygen Delivery Method Room Air Medical Decision Making [facility] Narrative Medical decision making narrative: Recheck after irrigation patient has significant amount of cerumen out there appears to be a thin very hard layer adjacent to the TM, would have patient continue with Debrox drops and irrigation over the next 2 or 3 days to see if this resolves his symptoms. If not asked to return for recheck he does not have primary care. Patient was given Debrox drops years as well as bulb syringe. Discharge Plan Departure Patient Disposition: Home Clinical Impression: Cerumen impaction Instructions: Cerumen Impaction Activity Restrictions/Additional Instructions: Please follow-up if your symptoms are persisting with primary care or ENT. If you are unable to set follow-up and symptoms are persisting you can come back for recheck. You can use 5 Debrox drops in the left ear, lay on her right side and allow it to sit in your ear for about 10 minutes. After this use at least 2-3 cups of warm water to irrigate with a bulb syringe in the affected side twice daily. Please return if new or worsening symptoms, persistently decreased hearing, pain, swelling of your ear, bloody drainage or other new or concerning changes. Prescriptions: No Action hydrocodone-acetaminophen 5-325 mg tablet 1 tab PO Q6H PRN (Reason: pain) Qty: 10 0RF ondansetron 4 mg tablet,disintegrating 4 mg PO Q6H Qty: 10 0RF ondansetron [Zofran ODT] 4 mg tablet,disintegrating 4 mg PO Q6-8H PRN (Reason: nausea and vomiting) Qty: 10 0RF indomethacin 50 mg capsule 50 mg PO TID Qty: 10 0RF Rx Instructions: administer with food or milk meloxicam 7.5 mg tablet 7.5 mg PO BID PRN (Reason: pain) Qty: 10 0RF amoxicillin-pot clavulanate 875-125 mg tablet 1 tab PO Q12H Qty: 20 0RF Referrals: Tong Moore MD [Physician] - Stand Alone Forms: Patient Portal/API
[2023-01-29 00:03] VITALS: BP 129/81; PULSE 80; RESP 16; O2SAT 95
== END 2023-01-29 00:07 | disposition home or self-care (01) ==
PROVIDERS: Emergency Provider Emergency Medicine
DX: H61.21 Impacted cerumen, right ear (principal)
CPT/HCPCS: 69209; 99282

== ENCOUNTER → 2023-04-12 01:25 | Outpatient (CLI) | payer OTHER, SELFPAY | PROVIDERS: Referring Provider Family Medicine; Visit Provider Family Medicine | DX: Z23 Encounter for immunization (principal) | CPT/HCPCS: 90471; 90686 ==

== ENCOUNTER 2024-01-02 00:46 | Emergency (ER) | payer OTHER, SELFPAY ==
[2024-01-02 00:52] VITALS: BP 152/89; PULSE 96; RESP 18; TEMP 37.3; O2SAT 98; BMI 47.1
--- NOTE | 2024-01-02 01:01 | ED.DENTAL ---
HPI - Dental/Oral General Chief complaint: Dental/Oral Stated complaint: scratchy throat, runny nose and toothache Time Seen by Provider: 01/02/24 00:48 Source: patient Mode of arrival: Ambulatory History of Present Illness HPI Narrative: 33yoM presents for sore throat, stuffy nose, nonproductive cough, and toothace. Had dental extraction 5 days ago, he states that he had been recovering normally at home following his dental extraction until 2 days ago, when he began to experience symptoms. States that when he blows his nose to clear it he feels air come out of his mouth. Related Data Previous Rx's Medication Instructions Recorded hydrocodone 5 mg-acetaminophen 325 1 tab PO Q6H PRN pain #10 tabs 03/04/18 mg tablet ondansetron 4 mg disintegrating 4 mg PO Q6H #10 tabs 03/04/18 tablet ondansetron 4 mg disintegrating 4 mg PO Q6-8H PRN nausea and 03/04/18 tablet (Zofran ODT) vomiting #10 tabs indomethacin 50 mg capsule 50 mg PO TID #10 caps 11/17/20 amoxicillin 875 mg-potassium 1 tab PO Q12H #20 tabs 09/30/21 clavulanate 125 mg tablet meloxicam 7.5 mg tablet 7.5 mg PO BID PRN pain #10 tabs 09/30/21 chlorhexidine gluconate 0.12 % 15 ml buccal BID #473 mL 01/02/24 mouthwash (Paroex Oral Rinse) Allergies Allergy/AdvReac Type Severity Reaction Status Date / Time No Known Drug Allergies Allergy Verified 01/28/23 20:24 Patient History Medical History (Updated 01/02/24 @ 02:07 by Destiny Mejía MD) Healthy male adult Social History Smoking Status: Never smoker Smoking Status: Never smoker alcohol intake frequency: 0-2 drinks per day Substance Use Type: does not use Exam Initial Vital Signs Initial Vital Signs: Vital Signs Temperature 99.2 F 01/02/24 00:52 Pulse Rate 96 H 01/02/24 00:52 Respiratory Rate 18 01/02/24 00:52 Blood Pressure 152/89 H 01/02/24 00:52 Pulse Oximetry 98 01/02/24 00:52 Oxygen Delivery Method Room Air 01/02/24 00:52 Const: Awake, alert, no acute distress, nontoxic appearing Mouth: Mucous membranes moist, no appearance of dry socket in maxillary or mandible regions, mild pharyngeal erythema without edema or exudates Respiratory: unlabored, speaking in complete sentences without dyspnea Skin: Warm, Dry, intact, no rashes Neuro: AO x3, CN II-XII grossly intact, moves all extremities Course Orders Ordered: ED Orders 01/02/24 00:58 Covid-19 + FLU A/B + RSV - PCR Stat 01/02/24 01:00 Strep Grp A by PCR Rapid Stat Discontinued Medications Dexamethasone (Dexamethasone 10 Mg/Ml Vial) 10 mg PO NOW ONE Stop: 01/02/24 01:00 Last Admin: 01/02/24 01:06 Dose: 10 mg Documented By: ANTOINE Ketorolac Tromethamine (Ketorolac 30 Mg/Ml Vial) 30 mg IM NOW ONE Stop: 01/02/24 01:00 Last Admin: 01/02/24 01:06 Dose: 30 mg Documented By: ANTOINE Lidocaine HCl (Lidocaine Viscous 2% 15 Ml Solution) 15 ml PO NOW ONE Stop: 01/02/24 01:00 Last Admin: 01/02/24 01:06 Dose: 15 ml Documented By: ANTOINE Vital Signs Vital signs: Vital Signs - 8 hr 01/02/24 00:52 Temperature 99.2 F Pulse Rate 96 H Respiratory Rate 18 Blood Pressure 152/89 H Pulse Oximetry 98 Oxygen Delivery Method Room Air MDM - Dental/Oral Lab Data Labs: Lab Results 01/02/24 01/02/24 Range/Units 00:58 01:00 SARS-CoV-2 (PCR) Positive H (Negative) Influenza A (RT-PCR) Flu a negative (NEGATIVE) Influenza B (RT-PCR) Flu b negative (NEGATIVE) RSV (PCR) Negative (Negative) Group A Strep (PCR) Negative (Negative) MDM Narrative Medical decision making narrative: Nontoxic patient presenting for the above complaint. Likely 2 separate issues, 1st is viral URI and 2nd is dental pain. The tooth extraction sites seem to be in good stages of healing, there is minimal pain and gum appears to be granulating well. Low suspicion for dry socket at this time. Strep swab negative, COVID-19 positive. Patient given medications for symptom relief in the emergency department, counseled on supportive measures that can be followed at home for symptom control. Peridex mouthwash sent to pharmacy for oral hygiene. Patient counseled to call his dentist tomorrow for follow up appointment. Discharge Plan Departure Patient Disposition: Home Clinical Impression: COVID-19, Pain, dental Instructions: DI for Tooth Extraction Activity Restrictions/Additional Instructions: Call your dentist tomorrow for a follow up appointment. Use the Peridex mouthwash twice daily. Take Tylenol and ibuprofen as needed for fever or discomfort. For nasal congestion you can use Mucinex, Sudafed, or [id number] sprays such as Afrin or saline spray. Prescriptions: New chlorhexidine gluconate [Paroex Oral Rinse] 0.12 % mouthwash 15 ml buccal BID Qty: 473 0RF No Action hydrocodone-acetaminophen 5-325 mg tablet 1 tab PO Q6H PRN (Reason: pain) Qty: 10 0RF ondansetron 4 mg tablet,disintegrating 4 mg PO Q6H Qty: 10 0RF ondansetron [Zofran ODT] 4 mg tablet,disintegrating 4 mg PO Q6-8H PRN (Reason: nausea and vomiting) Qty: 10 0RF indomethacin 50 mg capsule 50 mg PO TID Qty: 10 0RF Rx Instructions: administer with food or milk meloxicam 7.5 mg tablet 7.5 mg PO BID PRN (Reason: pain) Qty: 10 0RF amoxicillin-pot clavulanate 875-125 mg tablet 1 tab PO Q12H Qty: 20 0RF Stand Alone Forms: Patient Portal/API, Work Release Note
[2024-01-02 01:03] VITALS: PULSE 81; O2SAT 99
[2024-01-02] MEDS: KETOROLAC 30 MG/ML VIAL IM (01:06)
[2024-01-02] MEDS: DEXAMETHASONE 10 MG/ML VIAL PO (01:06)
[2024-01-02] MEDS: LIDOCAINE VISCOUS 2% 15 ML SOLUTION PO (01:06)
[2024-01-02 01:15] LABS: Strep Grp A by PCR Rapid Negative (Negative)
[2024-01-02 01:30] VITALS: BP 132/82; PULSE 80; O2SAT 95
[2024-01-02 01:51] LABS: Influenza A - CEPHEID Flu A NEGATIVE (NEGATIVE); Influenza B - CEPHEID Flu B NEGATIVE (NEGATIVE); Respiratory Syncytial Virus Negative (Negative)
[2024-01-02 01:55] LABS: COVID-19 CEPHEID 4-PLEX PCR POSITIVE (Negative)
[2024-01-02 02:00] VITALS: BP 123/75; PULSE 85; O2SAT 96
== END 2024-01-02 02:12 | disposition home or self-care (01) ==
PROVIDERS: Emergency Provider Emergency Medicine
DX: U07.1 COVID-19 (principal); K08.89 Other specified disorders of teeth and supporting structures
CPT/HCPCS: 0241U; 87651; 96372; 99283; J1100; J1885

== ENCOUNTER → 2024-03-15 14:25 | Outpatient (CLI) | payer OTHER, SELFPAY | PROVIDERS: Referring Provider Internal Medicine; Visit Provider Internal Medicine | DX: Z23 Encounter for immunization (principal) | CPT/HCPCS: 90471; 90656 ==

== ENCOUNTER 2024-05-22 17:48 | Emergency (ER) | payer OTHER, SELFPAY ==
[2024-05-22 17:53] VITALS: PULSE 86; RESP 25; O2SAT 99
[2024-05-22 17:55] VITALS: BP 173/79; PULSE 73; RESP 14; O2SAT 99
--- NOTE | 2024-05-22 17:55 | DI.RAD.S_ITS ---
PROCEDURE: XR CHEST 1V INDICATIONS: chest pain TECHNIQUE: One view of the chest was acquired. COMPARISON: [facility], CR, XR CHEST 1V, 01/11/2020, 4:29. FINDINGS: Surgical changes and devices: None. Lungs and pleura: Lungs are clear. No pleural effusions or pneumothorax. Mediastinum: Mediastinal contours appear normal. Heart size is normal. Bones and chest wall: No suspicious bony lesions. Overlying soft tissues appear unremarkable. IMPRESSION: No acute cardiopulmonary abnormality is seen. Dictated by: Musa Singer M.D. on 05/22/2024 at 17:10 Approved by: Musa Singer M.D. on 05/22/2024 at 17:11
[2024-05-22 18:00] VITALS: BP 164/72; PULSE 69; RESP 31; O2SAT 98
--- NOTE | 2024-05-22 18:01 | EKG_ITS ---
[facility] [address] [place] [id number] Test Date: 2024-05-22 Pat Name: Kameron Chan Department: [facility] Room: Gender: Male Child Care Team Lead: SUDHAKAR : 1990 Requested By: Order Number: [id number] Reading MD: Mark Moore Measurements Intervals [place] Rate: 71 P: 64 VT: 170 QRS: 28 QRSD: 90 T: 31 QT: 386 QTc: 419 Interpretive Statements Normal sinus rhythm Electronically Signed On 05-23-2024 8:22:00 PST by Mark Moore
[2024-05-22 18:03] VITALS: BP 173/79; PULSE 82; RESP 18; TEMP 36.8; O2SAT 99; BMI 44.5
[2024-05-22 18:08] LABS: Add Manual Diff / Slide Review NO; Basophils Absolute Auto 100 /uL (0-100); Basophils Percent Auto 0.9 % (0-2); Eosinophils Absolute Auto 200 /uL (0-450); Eosinophils Percent Auto 2.6 % (2-4); Hematocrit 51.9 % (41-53); Hemoglobin 17.7 g/dL (13.5-17.5); Lymphocytes Absolute Auto 2600 /uL (1100-4500); Lymphocytes Percent Auto 31.4 % (25-40); Mean Corpuscular HGB Conc 34.1 % (30-36); Mean Corpuscular Hemoglobin 29.7 PG (26-34); Mean Corpuscular Volume 87.1 fL (80-100); Monocytes Absolute Auto 700 /uL (0-900); Monocytes Percent Auto 7.9 % (3-14); Neutrophils Absolute Auto 4800 /uL (1500-7000); Neutrophils Percent Auto 57.2 % (50-75); Platelet Count 364 X10^3/uL (150-400); Red Blood Cell Count 5.95 X10^6/uL (4.5-5.9); Red Cell Distribution Width 13.8 % (11.6-14.8); White Blood Cell Count 8.3 X10^3/uL (4.5-11.0)
--- NOTE | 2024-05-22 18:08 | ED.CHESTPAIN ---
HPI - Chest Pain General Chief Complaint: Chest Pain Stated Complaint: chest pain Time Seen by Provider: 05/22/24 17:54 Source: patient Mode of arrival: Ambulatory Limitations: no limitations History of Present Illness HPI narrative: 33-year-old male with no reported past medical history presents for left-sided chest pain x12 hours. Pain is sharp, intermittent, located along the left side of his chest and goes to his back. Worse with movement and deep breaths. No medications taken prior to arrival. Denies shortness of breath, leg swelling, recent surgeries/hospitalizations. No personal or family hx of heart disease. 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 Related Data Home Medications Medication Instructions Recorded Confirmed sodium fluoride 1.1 %-potassium PO 01/15/24 01/15/24 nitrate 5 % dental paste triazolam 0.25 mg tablet mg PO 01/15/24 01/15/24 Allergies Allergy/AdvReac Type Severity Reaction Status Date / Time No Known Drug Allergies Allergy Verified 01/15/24 14:18 Patient History Medical History Healthy male adult Social History Smoking Status: Never smoker Smoking Status: Never smoker alcohol intake frequency: 0-2 drinks per day Exam Initial Vital Signs Initial Vital Signs: Vital Signs Pulse Rate 86 05/22/24 17:53 Respiratory Rate 25 H 05/22/24 17:53 Pulse Oximetry 99 05/22/24 17:53 Const: Awake, alert, no acute distress, nontoxic appearing Cardiac: regular rate, regular rhythm Chest: No crepitus, no deformity, generalized tenderness to palpation along left sternal border RESP: unlabored, clear bilaterally, no wheezing Skin: Warm, Dry, intact, no rashes Neuro: AO x3, CN II-XII grossly intact, moves all extremities Course Orders Ordered: ED Orders 05/22/24 17:55 XR chest 1V Stat EKG-12 Lead Stat 05/22/24 17:58 Complete Blood Count AUTO DIFF Stat Comprehensive Metabolic Panel Stat Lipase Stat Magnesium Stat NT-proBNP (BNP-Adult 18+) Stat PTT Partial Thromboplastin Chava Stat Prothrombin Time INR Stat Troponin & CK Cardiac Panel Stat Discontinued Medications Aspirin (Aspirin 81 Mg Chew Tab) 324 mg PO NOW ONE Stop: 05/22/24 17:56 Last Admin: 12/25/24 18:15 Dose: 324 mg Ketorolac Tromethamine (Ketorolac 30 Mg/Ml Vial) 15 mg IV NOW ONE Stop: 05/22/24 18:26 Last Admin: 05/22/24 18:34 Dose: 15 mg Vital Signs Vital signs: Vital Signs - 8 hr 05/22/24 17:53 05/22/24 17:55 05/22/24 17:55 Temperature Pulse Rate 86 73 Respiratory Rate 25 H 14 Blood Pressure 173/79 H Pulse Oximetry 99 99 Oxygen Delivery Method 05/22/24 18:00 05/22/24 18:00 05/22/24 18:03 Temperature 98.2 F Pulse Rate 69 82 Respiratory Rate 31 H 18 Blood Pressure 164/72 H 173/79 H Pulse Oximetry 98 99 Oxygen Delivery Method Room Air Room Air 05/22/24 18:30 05/22/24 18:31 05/22/24 18:31 Temperature Pulse Rate 59 L 62 Respiratory Rate 12 16 Blood Pressure 121/61 Pulse Oximetry 96 96 Oxygen Delivery Method MDM - Chest Pain Differential Diagnosis Differential diagnosis: Likely atypical chest pain, costochondritis and chest pain Lab Data 05/22/24 17:58 05/22/24 17:58 Labs: Lab Results 05/22/24 Range/Units 17:58 WBC 8.3 (4.5-11.0) X10^3/uL RBC 5.95 H (4.5-5.9) X10^6/uL Hgb 17.7 H (13.5-17.5) g/dL Hct 51.9 (41-53) % MCV 87.1 (80-100) fL MCH 29.7 (26-34) PG MCHC 34.1 (30-36) % RDW 13.8 (11.6-14.8) % Plt Count 364 (150-400) X10^3/uL Neut % (Auto) 57.2 (50-75) % Lymph % (Auto) 31.4 (25-40) % Izard % (Auto) 7.9 (3-14) % Eos % (Auto) 2.6 (2-4) % Baso % (Auto) 0.9 (0-2) % Neut # (Auto) 4800 (7343-1518) /uL Lymph # (Auto) 2600 (8730-1604) /uL Izard # (Auto) 700 (0-900) /uL Eos # (Auto) 200 (0-450) /uL Baso # (Auto) 100 (0-100) /uL PT 10.9 (9.4-12.5) SECONDS INR 1.0 (0.9-1.3) APTT 34 (25.1-36.5) SECONDS Sodium 142 (137-145) mmol/L Potassium 4.0 (3.4-5.1) mmol/L Chloride 109 H (98-107) mmol/L Carbon Dioxide 24 (22-32) mmol/L BUN 13 (9-20) mg/dL Creatinine 0.95 (0.66-1.25) mg/dL Estimated GFR > 60 (>60) mL/min BUN/Creatinine Ratio 13.7 (6-22) Glucose 97 (70-100) mg/dL Calcium 9.5 (8.4-10.2) mg/dL Magnesium 2.0 (1.6-2.3) mg/dL Total Bilirubin 0.5 (0.2-1.3) mg/dL AST 28 (17-59) IU/L ALT 32 (<50) IU/L Alkaline Phosphatase 80 (38-126) U/L Total Creatine Kinase 134 (55-170) U/L Troponin I < 0.012 (0.01-0.034) ng/mL NT-Pro-B Natriuret Pep 30 (<125) pg/mL Total Protein 7.7 (6.3-8.2) g/dL Albumin 4.7 (3.5-5.0) g/dL Globulin 3.0 (1.7-4.1) g/dL Albumin/Globulin Ratio 1.6 (1.0-2.8) Lipase 78 (23-300) U/L Imaging Data Chest x-ray: Radiologist's Impression: PROCEDURE: XR CHEST 1V INDICATIONS: chest pain TECHNIQUE: One view of the chest was acquired. COMPARISON: [facility], CR, XR CHEST 1V, 01/11/2020, 4:29. FINDINGS: Surgical changes and devices: None. Lungs and pleura: Lungs are clear. No pleural effusions or pneumothorax. Mediastinum: Mediastinal contours appear normal. Heart size is normal. Bones and chest wall: No suspicious bony lesions. Overlying soft tissues appear unremarkable. IMPRESSION: No acute cardiopulmonary abnormality is seen. Dictated by: Musa Singer M.D. on 05/22/2024 at 17:10 Approved by: Musa Singer M.D. on 05/22/2024 at 17:11 ECG Data Interpretation: Normal sinus rhythm at 71 beats per minute. Normal FL. No ST T wave changes MDM Narrative Medical decision making narrative: Well-appearing patient with left-sided chest wall tenderness to palpation. Possibly costochondritis. Heart score 1 based on BMI of 44, otherwise patient has no known medical problems and no reported family history of heart disease. EKG normal sinus rhythm without any concerning findings. Chest x-ray negative for acute findings. Patient given Toradol for pain. Initial BP elevated, however after sitting in ED bed BP returned to normal without interventions. Patient counseled on lab and imaging findings, recommended Tylenol and ibuprofen as needed for discomfort, chest wall stretching exercises. Informed of elevated BP reading on presentation and recommended PCP follow up. Discharge Plan Departure Patient Disposition: Home Clinical Impression: Atypical chest pain Instructions: DI for Atypical Chest Pain Activity Restrictions/Additional Instructions: Your laboratory work, EKG, and chest x-ray imaging today were normal. You may have strained your chest wall, which can cause some of your describe symptoms. Take Tylenol and ibuprofen as needed for pain or discomfort at home. Use gentle stretching exercises to stretch out your chest wall. Your blood pressure was elevated today. I recommend that you keep an eye on it and follow up with a primary care doctor. Prescriptions: No Action sodium fluoride-pot nitrate 1.1-5 % paste PO triazolam 0.25 mg tablet PO Referrals: Miscellaneous,Doctor, [Primary Care Provider] - Stand Alone Forms: Patient Portal/API/Survey, Work Release Note
[2024-05-22] MEDS: ASPIRIN 81 MG CHEW TAB 324 MG PO (18:15)
[2024-05-22 18:18] LABS: Prothrombin Time 10.9 SECONDS (9.4-12.5)
[2024-05-22 18:21] LABS: Alanine Aminotransferase 32 IU/L (<50); Albumin 4.7 g/dL (3.5-5.0); Albumin Globulin Ratio 1.6 (1.0-2.8); Alkaline Phosphatase 80 U/L (38-126); Aspartate Aminotransferase 28 IU/L (17-59); BUN Creatinine Ratio 13.7 (6-22); Bilirubin Total 0.5 mg/dL (0.2-1.3); Blood Urea Nitrogen 13 mg/dL (9-20); Calcium 9.5 mg/dL (8.4-10.2); Carbon Dioxide 24 mmol/L (22-32); Chloride 109 mmol/L (98-107); Creatine Kinase 134 U/L (55-170); Estimated Glomerular Filt Rate > 60 mL/min (>60); Glucose 97 mg/dL (70-100); HEMOLYSIS < 15 (0-50); Lipase 78 U/L (23-300); PTT Partial Thromboplastin Tim 34 SECONDS (25.1-36.5); Sodium 142 mmol/L (137-145); Total Protein 7.7 g/dL (6.3-8.2)
[2024-05-22 18:30] VITALS: PULSE 59; RESP 12; O2SAT 96
[2024-05-22 18:31] VITALS: BP 121/61; PULSE 62; RESP 16; O2SAT 96
[2024-05-22 18:33] LABS: NT-proBNP (BNP-Adult 18+) 30 pg/mL (<125); Troponin I < 0.012 ng/mL (0.01-0.034)
[2024-05-22] MEDS: KETOROLAC 30 MG/ML VIAL 15 MG IV (18:34)
== END 2024-05-22 18:50 | disposition home or self-care (01) ==
PROVIDERS: Emergency Provider Emergency Medicine
DX: R07.89 Other chest pain (principal); Z68.41 Body mass index [BMI] 40.0-44.9, adult
CPT/HCPCS: 36415; 71045; 80053; 82550; 83690; 83735; 83880; 84484; 85025; 85610; 85730; 93005; 96374; 99284; J1885